=== PATIENT | male | born 1990 | race Caucasian/White ===

== ENCOUNTER 2017-02-13 20:38 | Emergency (ER) | payer MEDICAID ==
--- NOTE | 2017-02-13 21:25 | Emergency Department Record ---
History of Present Illness - General Chief Complaint: Suicidal thoughts Stated Complaint: SUICIDAL THOUGHTS Time Seen by Provider: 02/13/17 20:51 Source: Patient Mode of Arrival: Ambulatory Limitations: No limitations Travel/Exposure to [place] Within 21 Days of Symptoms: No - History of Present Illness Initial Comments: 26 yo male presents to ED for evaluation of thoughts of self harm and as well as thought of harming his infant child. Patient reports a history of anxiety and depression, reports that he do3es not normally take medications for his symptoms. Patient states that "If I had access to a gun, I would have shot myself". Patient reports numerous abrasions to the left forearm "that I think I may have done while I was sleeping, cause' I wouldn't normally do that". Patient denies previous history of self-harm or suicide attempts. MD Complaint: Feels depressed, Suicidal ideation Onset/Timin -: Week(s) Associated Psychiatric Symptoms: Suicidal ideation Quality: Constant Improves With: None Worsens With: None Context: Recent drug abuse (Tramadol) If Self Harm: Admits thoughts of self harm, Has plan, Self-inflicted trauma - Alyssa Coma Scale Eye Response: (4) Open spontaneously Motor Response: (6) Obeys commands Verbal Response: (5) Oriented Alyssa Total: 15 - Related Data Home Medications Medication Instructions Recorded Confirmed Last Taken Tramadol HCl [Ultram] 50 mg PO Q8H 02/13/17 02/13/17 Unknown Allergies Allergy/AdvReac Type Severity Reaction Status Date / Time amoxicillin Allergy HIVES Verified 01/25/16 07:23 Penicillins Allergy HIVES Verified 01/25/16 07:23 Review of Systems Constitutional: Denies: Chills, Fever, Malaise, Night sweats Eyes: Denies: Eye discharge, Eye pain ENT: Denies: Congestion, Ear pain, Epistaxis Respiratory: Denies: Cough, Dyspnea Cardiovascular: Denies: Chest pain, Dyspnea on exertion Endocrine: Denies: Fatigue, Heat or cold intolerance Gastrointestinal: Denies: Abdominal pain, Nausea, Vomiting Genitourinary: Denies: Incontinence, Retention Musculoskeletal: Denies: Arthralgia, Back pain, Gout, Joint swelling Skin: Reports: Other (numerous linear abrasions to the left forearm). Denies: Bruising, Change in color Neurological: Denies: Abnormal gait, Confusion, Headache, Seizure Psychiatric: Reports: Auditory hallucinations, Depression, Suicidal thoughts. Denies: Anxiety Hematological/Lymphatic: Denies: Anemia, Blood Clots Past Medical History - SOCIAL HISTORY Smoking Status: Current some day smoker - RESPIRATORY Hx Respiratory Disorders: No - CARDIOVASCULAR Hx Cardio Disorders: No - NEURO Hx Neuro Disorders: No - GI Hx GI Disorders: No - Hx Genitourinary Disorders: No - ENDOCRINE Hx Endocrine Disorders: No - MUSCULOSKELETAL Hx Musculoskeletal Disorders: No - PSYCH Hx Psych Problems: Yes Hx Anxiety: Yes Hx Depression: Yes Comment:: PTSD - HEMATOLOGY/ONCOLOGY Hx Hematology/Oncology Disorders: No Family Medical History Any Significant Family History?: Yes *Alcohol Comment: hx in family Hx Cancer: Mother Hx Depression: Grandparents Hx Diabetes: Grandparents Physical Exam - General General Appearance: Alert, Oriented x3, Cooperative, No acute distress Limitations: No limitations - Head Head exam: Atraumatic, Normocephalic, Normal inspection Head exam detail: negative: Abrasion, Contusion, De La Cruz's sign, General tenderness, Hematoma, Laceration - Eye Eye exam: Normal appearance. negative: Conjunctival injection, Periorbital swelling, Periorbital tenderness, Scleral icterus - ENT Ear exam: negative: Auricular hematoma, Auricular trauma Nasal Exam: negative: Active bleeding, Discharge, Dried blood, Foreign body Mouth exam: negative: Drooling, Laceration, Muffled voice, Tongue elevation - Neck Neck exam: Normal inspection. negative: Meningismus, Tenderness - Respiratory Respiratory exam: Normal lung sounds bilaterally. negative: Rales, Respiratory distress, Rhonchi, Stridor - Cardiovascular Cardiovascular Exam: Regular rate, Normal rhythm, Normal heart sounds - GI/Abdominal GI/Abdominal exam: Soft. negative: Rebound, Rigid, Tenderness - Rectal Rectal exam: Deferred - exam: Deferred - Extremities Extremities exam: Other (Numerous (>10) shallow, linear abrasions to the left forearm on examination). negative: Calf tenderness, Pedal edema, Tenderness - Back Back exam: Denies: CVA tenderness (R), CVA tenderness (L) - Neurological Neurological exam: Alert, Normal gait, Oriented X3 - Psychiatric Psychiatric exam: Depressed, Suicidal ideation - Skin Skin exam: Normal color. negative: Abrasion Type of lesion: negative: abrasion Course Vital Signs 02/13/17 21:01 Pulse Rate 133 H Respiratory 24 Rate Blood Pressure 129/89 Pulse Ox 97 - Reevaluation(s) Reevaluation #1: 02/13/17 22:03 Labs reviewed and are grossly unremarkable for an acute process. Reevaluation #2: 02/13/17 22:20 Previous records obtained and reviewed from [facility], patient was seen and evaluated last PM for suicidal ideation and substance abuse. Per records, the patient refused outpatient follow-up as arranged by [facility] in [place] stating "I just want some Ultram". Will consult [facility] for mental health evaluation at this time. Reevaluation #3: 02/13/17 23:50 Certification completed, message left for [facility]. Will administer Ativan as the patient reports that he is becoming more anxious in room. Reevaluation #4: 02/14/17 01:41 Case was discussed with [facility], they have reviewed the patient's records and should be able to receive the patient for psychiatric evaluation in about 2 hours time. Reevaluation #5: 02/14/17 03:07 3:05 AM Police are now present as numerous attempts to explain the marshall/cert process have failed. 02/14/17 03:[address] [facility] has called and accepted the patient for evaluation, EMS called for transfer. Medical Decision Making - Lab Data Result diagrams: 02/13/17 21:30 02/13/17 21:30 Disposition Disposition: Transfer Clinical Impression: Suicidal ideation Disposition: Acute Care Hospital Transfer Transfer To: [facility] Reason For Transfer: Suicidal ideation Accepting Physician: Symone Time Discussed w/Accepting Physician: 03:09 Condition: (2) Stable Forms: Patient Portal Access Time of Disposition: 03:09 Quality - Quality Measures Quality Measures: N/A - Blood Pressure Screening Does Patient Have Any of the Following: No Blood Pressure Classification: Pre-Hypertensive BP Reading Systolic Measurement: 129 Diastolic Measurement: 89 Screening for High Blood Pressure: < Pre-Hypertensive BP, F/U Documented > [ [id number]] Pre-Hypertensive Follow-up Interventions: Referral to alternative/primary care provider.
[2017-02-13 21:35] LABS: BASO % 0.2 % (0-6); EOS % 0.9 % (0-6); GRAN % 61.4 % (47-80); HEMATOCRIT 41.5 % (42.0-52.0); HEMOGLOBIN 14.4 gm/dl (14.0-18.0); LYMPH % 31.1 % (16-45); MEAN CELL VOLUME 87.7 fl (81-97); MEAN CORPUSCULAR HEMOGLOBIN 30.4 pg (27-33); MEAN CORPUSCULAR HGB CONC 34.7 g/dl (32-36); MONO % 6.4 % (0-9); PLATELET COUNT 249 K/uL (130-400); RED BLOOD COUNT 4.73 M/uL (4.40-5.70); RED CELL DISTRIBUTION WIDTH 12.5 % (11.5-14.5); WHITE BLOOD COUNT W/O DIFF 9.9 K/uL (4.2-12.2)
[2017-02-13 21:39] LABS: AMPHETAMINE SCREEN URINE NOT DETECTED; BARBITURATE SCREEN URINE NOT DETECTED; BENZODIAZEPINE SCREEN URINE NOT DETECTED; COCAINE SCREEN URINE NOT DETECTED; METHADONE SCREEN URINE NOT DETECTED; METHAMPHETAMINE SCREEN NOT DETECTED; OPIATE SCREEN URINE NOT DETECTED; OXYCODONE SCREEN URINE NOT DETECTED; PHENCYCLIDINE SCREEN URINE NOT DETECTED; PROPOXYPHENE SCREEN URINE NOT DETECTED; THC SCREEN URINE NOT DETECTED; TRICYCLIC ANTIDEPRESSANT SCRN NOT DETECTED
[2017-02-13 21:47] LABS: BLOOD UREA NITROGEN 11 mg/dL (6-20); CREATININE 0.8 mg/dL (0.7-1.2); EST GLOMERULAR FILTRATION RATE > 60 mL/min
[2017-02-13 21:48] LABS: TOTAL PROTEIN 7.2 g/dL (6.6-8.7)
[2017-02-13 21:50] LABS: GLUCOSE,RANDOM 81 mg/dL (74-109)
[2017-02-13 21:52] LABS: ALT/SGPT 13 U/L (<41); AST/SGOT 14 U/L (10.0-50.0)
[2017-02-13 21:53] LABS: ALB/GLOB RATIO 2.1 (1.1-1.8); ALBUMIN 4.9 g/dL (4.0-5.0); ALKALINE PHOSPHATASE 42 U/L (40-129)
[2017-02-13 21:59] LABS: ACETAMINOPHEN < 5.0 ug/mL (10.0-30.0); SALICYLATE 2.4 mg/dL (2.8-20)
[2017-02-13 22:03] LABS: THYROID STIMULATING HORMONE 1.68 uIU/mL (0.270-4.20)
[2017-02-13] MEDS ORDERED: LORAZEPAM 0.5 MG TABLET PO ONE (23:50)
[2017-02-14] MEDS ORDERED: ALPRAZOLAM 0.25 MG TABLET PO ONE (01:40)
== END 2017-02-14 04:07 | disposition short-term general hospital (02) ==
LOC: ER 20:38
DX: R45.851 Suicidal ideations (principal); F32.9 Major depressive disorder, single episode, unspecified
CPT/HCPCS: 99285 ×2; 85025; 80053; 84443; 80305; G0480 ×3; 80320; 80329